=== PATIENT | female | born 1965 | race Caucasian/White ===

== ENCOUNTER 2019-01-07 11:00 | Outpatient (REF) | payer BC, SELFPAY ==
--- NOTE | 2019-01-07 10:30 | PAPFT_PTH ---
PATIENT: Nicole Moffett LOC: [facility] U#:[id number] AGE/SX: 53/F ROOM: RE01/07/[address]: Phyllis Collazo MD, DC : 1965 BED: DIS: 01/07/2019 SPEC #: [id number] RECD: 01/07/19 13:00 STATUS: AVI RECorrie #: [id number] SEAN: 01/07/19 10:[address]: Phyllis Collazo DEPT: [facility] Cytology RECD BY: Jeni Gandhi Tissues: 1 - CX/ENDOCX FOR PAP SMEARS Procedures: PAP THIN PREP/UVM Screening HPV DNA PROBE Comments: [id number]
== END 2019-01-07 11:20 ==
LOC: LBN 11:00
PROVIDERS: PCP Family Medicine; Visit Provider Family Medicine
DX: Z12.4 Encounter for screening for malignant neoplasm of cervix (principal); Z11.51 Encounter for screening for human papillomavirus (HPV)
CPT/HCPCS: 88142; 87624

== ENCOUNTER 2019-01-22 12:30 | Outpatient (REF) | payer BC, SELFPAY ==
--- NOTE | 2019-01-22 10:40 | ENDOMET_PTH ---
PATIENT: Nicole Moffett LOC: [facility] U#:[id number] AGE/SX: 53/F ROOM: RE01/22/[address]: Yakelin Montero MD : 1965 BED: DIS: 01/22/2019 SPEC #: [id number] RECD: 01/22/19 12:39 STATUS: AVI REQ #: [id number] SEAN: 01/22/19 10:[address]: Yakelin Montero DEPT: Surgical Specimen RECD BY: Jeni Gandhi ENTERED: 01/22/19 12:40 SP TYPE: Endomet OTHR DR: Phyllis Collazo MD, DC Tissues: 1 - ENDOMETRIUM BX/CURRETTE Procedures: GROSS AND MICRO LEVEL 4 Comments: [id number]
== END 2019-01-22 12:50 ==
LOC: LBN 12:30
PROVIDERS: PCP Family Medicine; Visit Provider Obstetrics & Gynecology
DX: N85.00 Endometrial hyperplasia, unspecified (principal); N85.8 Other specified noninflammatory disorders of uterus
CPT/HCPCS: 88305

== ENCOUNTER 2019-02-01 00:44 | Outpatient (CLI) | payer BC, SELFPAY ==
--- NOTE | 2019-02-01 11:01 | DI.MAMMO_ITS ---
SYMPTOM/DIAGNOSIS: SCREENING Z12.31 MAMMOGRAM: 02/01 Mammograms were interpreted according to the usual protocol including computer analysis with CAD system, tomosynthesis and C view imaging. The breasts are heterogeneously dense. No dominant mass or clumped microcalcification is identified. The current examination is compared with previous examination of December 2016 and there has been no gross interval change in appearance in comparison with the previous study. CONCLUSION: No specific evidence of malignancy at this time. Routine screening examinations are suggested at yearly intervals in this age group in this age group according to the ACS/ACR guidelines. Category 1, breast density category c. MQSA ASSESSMENT OF FINDINGS: Negative. Category 1. Patient will receive a letter notifying them of these results. Bi-RADS category C. The breasts are heterogeneously dense, which may obscure small masses.
== END 2019-02-01 01:04 ==
PROVIDERS: PCP Family Medicine; Visit Provider Family Medicine
DX: Z12.31 Encounter for screening mammogram for malignant neoplasm of breast (principal)
CPT/HCPCS: 77063; 77067

== ENCOUNTER 2019-02-01 01:35 | Outpatient (CLI) | payer BC, SELFPAY ==
[2019-02-01] MEDS: Inhaler, Assist Device 1 EACH MC (13:53)
[2019-02-01] MEDS: Albuterol HFA 18 GM 200 PUFF INH IH (13:53)
--- NOTE | 2019-02-03 11:34 | PFT_ITS ---
Date: February 01, 2019 Requesting Provider: Dr. Phyllis Collazo Spirometry: Moderately severe obstructive airways disease with no significant bronchodilator response. Lung volumes: No evidence of restriction. There is mild hyperinflation and air trapping. Diffusion capacity: Mildly reduced, even when corrected to alveolar volume. Airways resistance: Normal. IMPRESSION: Moderately severe obstructive airways disease with no significant bronchodilator response. This is associated with mild hyperinflation and air trapping and mild diffusion defect. When this study was compared to previous ones from 06/01/2006, 01/14/2007, 01/12/2008, 06/20/2009, 08/03/2010, 05/04/2012, and 09/09/2014, the patient had an initial drop in FVC from 2005 to 2011, and has remained stable since; FEV-1 had a minimal drop from 2005 to 2014, and again has remained relatively stable since then. Clinical correlation recommended.
== END 2019-02-01 01:55 ==
PROVIDERS: PCP Family Medicine; Visit Provider Family Medicine
DX: R06.09 Other forms of dyspnea (principal); E88.01 Alpha-1-antitrypsin deficiency
CPT/HCPCS: 94060; 94150; 94726; 94729

== ENCOUNTER 2020-08-17 03:49 | Outpatient (CLI) | payer BC, SELFPAY ==
--- NOTE | 2020-08-23 08:14 | W.PFT ---
Date of service: 08/17/20 Time of Service: 02:36 Pulmonary Function Test Result Interpretation Spirometry: Severe obstructive airways disease. No bronchodilator testing was carried out Lung Volumes: No evidence of restriction, mild to moderate hyperinflation and air trapping Diffusion Capacity: Severely reduced, this is moderately reduced when corrected to alveolar volume Airway Pressure: Normal Impression Severe obstructive airways disease, no bronchodilator testing was carried out, this is associated with mild to moderate hyperinflation and air trapping and severe diffusion defect when the study was compared to previous ones from 06/01/2006, 01/14/2007, 01/12/2008, 06/20/2009, 08/03/2010, 05/04/2012, 09/09/2014, 02/01/2019, 08/17/2020. There has been a gradual and fairly substantial decline in FVC and FEV1, FVC had been initially relatively stable until 2008 and from thereon there is a constant and progressive decline, overall there is a 660 cc decline from 2005, and since the time of progressive decline in 2010, there is a 550 cc decline. FEV1 had a similar pattern, from 2005 there is a 410 cc decline, and since 2010 when the progressive decline started, there is a 370 cc decline Clinical Correlation therefore is recommended.
== END 2020-08-17 03:50 | disposition home or self-care (01) ==
LOC: RT 03:49
PROVIDERS: PCP Family Medicine; Visit Provider Family Medicine
DX: J45.909 Unspecified asthma, uncomplicated (principal); E88.01 Alpha-1-antitrypsin deficiency
CPT/HCPCS: 94726; 94729; 94010

== ENCOUNTER 2021-09-12 15:39 | Outpatient (REF) | payer BC, SELFPAY ==
[2021-09-12 16:41] LABS: Abs Immature Grans 0.01 10^3/uL (0.0-0.06); Absolute Basophil Count 0.03 10^3/uL (0.0-0.2); Absolute Eosinophil Count 0.11 10^3/uL (0.0-0.7); Absolute Lymphocyte Count 1.34 10^3/uL (1.2-3.4); Absolute Monocyte Count 0.37 10^3/uL (0.1-0.8); Absolute Neutrophil Count 4.66 10^3/uL (1.2-6.7); Basophils % 0.5; Eosinophils % 1.7; HCT 43.9 % (36.0-46.0); HGB 14.6 g/dL (11.2-15.7); Immature Grans % 0.2; Lymphocytes % 20.6; MCH 29.9 pg (27.0-33.0); MCHC 33.3 % (32.0-36.0); MCV 89.8 fL (80-95); Monocytes % 5.7; Neutrophils % 71.3; Nucleated RBC 0 %; Platelet Count 261 10^3/uL (130-400); RBC 4.89 10^6/uL (3.93-5.22); RDW 12.3 % (11.7-14.6); RDW-SD 40.1 fL; WBC 6.52 10^3/uL (4.4-10.8)
[2021-09-12 17:12] LABS: ALT 36 U/L (14-59); AST 22 U/L (15-37); Albumin 4.4 g/dL (3.4-5.0); Alkaline Phosphatase 83 U/L (46-116); Bilirubin, Direct 0.2 mg/dL (0.0-0.2); Bilirubin, Total 0.7 mg/dL (0.2-1.0); TSH (W/Ref FT4) 1.11 uIU/mL (0.36-3.74); Total Protein 7.4 g/dL (6.4-8.2)
[2021-09-14 10:20] LABS: Alpha 1 Antitrypsin,Serum <58 mg/dL (90-200)
[2021-09-21 15:40] LABS: Misc Referral (MAYO) See Comments
== END 2021-09-12 15:40 | disposition home or self-care (01) ==
LOC: LBN 15:39
PROVIDERS: PCP Family Medicine; Visit Provider Student in an Organized Health Care Education/Training Program
DX: E88.01 Alpha-1-antitrypsin deficiency (principal)
CPT/HCPCS: 80076; 82103; 84443; 85025

== ENCOUNTER 2021-11-07 02:21 | Outpatient (CLI) | payer BC, SELFPAY ==
[2021-11-09 09:47] LABS: IgA 142 mg/dL (85-499)
[2021-11-15 10:55] LABS: Anti-IgA <99 U/mL (<99)
== END 2021-11-07 02:22 | disposition home or self-care (01) ==
LOC: LBO 02:21
PROVIDERS: PCP Family Medicine; Visit Provider Student in an Organized Health Care Education/Training Program
DX: E88.01 Alpha-1-antitrypsin deficiency (principal)
CPT/HCPCS: 36415; 82784; 83520

== ENCOUNTER → 2021-12-12 01:31 | Outpatient (CLI) | payer BC, SELFPAY ==
--- NOTE | 2021-12-12 08:00 | DI.MAMMO_ITS ---
Exam(s) MAMMO SCREENING EXAM: MAMMO SCREENING CLINICAL HISTORY: screening, Z12.39 TECHNIQUE: Mammograms were interpreted according to the usual protocol including computer analysis w [employer] CAD system, tomosynthesis and C-view imaging. COMPARISON: 2017 and 2018 FINDINGS: The breasts are composed of scattered fibroglandular densities, Breast Density category B. No suspicious masses or suspicious microcalcifications are seen. No skin thickening or abnormal axillary lymph nodes are seen. There has been no significant change from prior exams. IMPRESSION: BI-RADS Category 1, Negative mammogram Yearly screening mammography is recommended. Breast Density - Category B, scattered fibroglandular densities. A negative radiographic report should not delay biopsy if a dominant or clinically suspicious mass is present. Up to ten percent of cancers are not identified on mammography. A negative report may reinforce clinical impression. Adenosis and dense breasts may obscure an underlying neoplasm. False positive reports average 6 to 10%. Patient will receive a letter notifying them of these results.
== END ==
PROVIDERS: PCP Family Medicine; Visit Provider Family Medicine
DX: Z12.31 Encounter for screening mammogram for malignant neoplasm of breast (principal)
CPT/HCPCS: 77063; 77067

== ENCOUNTER 2022-01-21 03:34 | Outpatient (CLI) | payer BC, SELFPAY ==
[2022-01-22 11:10] LABS: HBs Antibody, Quant >1000.0 mIU/mL (See Note); Hep B Surface Ab Positive (See Note); Hepatitis B Core Antibody Negative (Negative); Hepatitis B Surface Antigen Negative (Negative)
== END 2022-01-21 03:35 | disposition home or self-care (01) ==
LOC: LOS 03:34
PROVIDERS: PCP Family Medicine; Visit Provider Student in an Organized Health Care Education/Training Program
DX: E88.01 Alpha-1-antitrypsin deficiency (principal)
CPT/HCPCS: 36415; 80061; 86704; 86706; 87340

== ENCOUNTER 2022-06-20 12:58 | Outpatient (REF) | payer BC, SELFPAY ==
--- NOTE | 2022-06-20 11:30 | PAPFT_PTH ---
PATIENT: Nicole Moffett LOC: [facility]#:[id number] AGE/SX: 57/F ROOM: RE06/20/[address]: Phyllis Collazo MD, DC : 1965 BED: DIS: 06/20/2022 SPEC #: [id number] RECD: 06/21/22 15:18 STATUS: AVI REQ #: [id number] SEAN: 06/20/22 11:[address]: Phyllis Collazo DEPT: [facility] Cytology RECD BY: Tara Saunders Tissues: 1 - CX/ENDOCX FOR PAP SMEARS Procedures: PAP THIN PREP/UVM Screening HPV DNA PROBE Comments: [id number]
== END 2022-06-20 12:59 | disposition home or self-care (01) ==
LOC: LBN 12:58
PROVIDERS: PCP Family Medicine; Visit Provider Family Medicine
DX: Z12.4 Encounter for screening for malignant neoplasm of cervix (principal); Z11.51 Encounter for screening for human papillomavirus (HPV)
CPT/HCPCS: 88142; 87624

== ENCOUNTER 2022-08-19 03:03 | Outpatient (CLI) | payer BC, SELFPAY ==
--- NOTE | 2022-08-19 15:28 | W.PFT ---
Date of service: 08/19/22 Time of Service: 13:04 Pulmonary Function Test Result Requesting Provider Felipe Indications: AAT deficiency, COPD Interpretation Spirometry: There is severe airflow limitation. There FVC is reduced due to severe obstruction. Lung Volumes: There is air trapping and hyperinflation. Diffusion Capacity: There is a reduced diffusion. Airway Pressure: Normal airways resistance. Impression Severe airflow obstruction with air trapping and a reduced diffusion. Note: When compared to clinic spirometry of 04/02/22, the FEV1 and FVC are significantly improved. When compared to 08/17/20, there is decline in FVC and FEV1. Clinical Correlation therefore is recommended.
== END 2022-08-19 03:04 | disposition home or self-care (01) ==
LOC: RT 03:03
PROVIDERS: PCP Family Medicine; Visit Provider Student in an Organized Health Care Education/Training Program
DX: E88.01 Alpha-1-antitrypsin deficiency (principal)
CPT/HCPCS: 94726; 94729; 94010

== ENCOUNTER → 2023-12-11 00:05 | Outpatient (CLI) | payer BC, SELFPAY ==
--- NOTE | 2023-12-11 07:00 | DI.DEXA_ITS ---
Exam(s) XR DEXA BONE DENSITY W/WO LALIT EXAM: XR DEXA BONE DENSITY W/WO LALIT CLINICAL HISTORY: menopause, postmenopausal status, Z78.0 TECHNIQUE: COMPARISON: No exams were available for comparison FINDINGS: Lateral Spine Image: Unremarkable. No compression deformities identified. Left hip: Total T-Score: -0.2 Total Z-Score: 0.6 T- and Z-scores: Within normal limits. Lumbar Spine: Total T-Score: -0.6 Total Z-Score: 0.6 T- and Z-scores: Within normal limits. IMPRESSION: No evidence of osteoporosis.
--- NOTE | 2023-12-11 07:00 | DI.MAMMO_ITS ---
Exam(s) MAMMO SCREENING EXAM: MAMMO SCREENING CLINICAL HISTORY: screening, Z12.39 TECHNIQUE: Bilateral full field digital CC and MLO mammographic images were obtained with 3D tomosyn thesis and utilizing computer aided detection (CAD). COMPARISON: Available for comparison. FINDINGS: Masses/Architectural Distortion: None seen. Microcalcifications: No suspicious pleomorphic-type are seen. Skin Thickening/Nipple Retraction: None. IMPRESSION: 1. No significant interval change with no specific features of malignancy noted. 2. Unless there is more urgent need, screening mammography is recommended, as per [employer] guidelines. BI-RADS Category 1 - Negative Breast Density - Category B - Scattered areas of fibroglandular density Breast density category C or D implies that the patient has dense breast tissue. Dense breast tissue is very common and is not abnormal but dense breast tissue can make it harder to find cancer on a ma mmogram. Also, dense breast tissue may increase their breast cancer risk. This information about the result of the mammogram report was provided to the patient to raise their awareness. Use this report when you speak with the patient about their risks for breast cancer, which includes their family hist ory. At that time, you may recommend for more screening tests (Ultrasound or MRI) as they might be us eful based on their risk. A negative radiographic report should not delay biopsy if a dominant or clinically suspicious mass is present. Up to ten percent of cancers are not identified on mammography. A negative report may reinforce clinical impression. Adenosis and dense breasts may obscure an underlying neoplasm. False positive reports average 6 to 10%. Patient will receive a letter notifying them of these results.
== END ==
PROVIDERS: PCP Family Medicine; Visit Provider Family Medicine
DX: Z78.0 Asymptomatic menopausal state (principal); Z12.31 Encounter for screening mammogram for malignant neoplasm of breast; Z13.820 Encounter for screening for osteoporosis
CPT/HCPCS: 77063; 77067; 77080

== ENCOUNTER 2023-12-11 01:07 | Outpatient (CLI) | payer BC, SELFPAY ==
[2023-12-11 08:12] LABS: HCT 45.6 % (36.0-46.0); HGB 15.1 g/dL (11.2-15.7); MCHC 33.1 % (32.0-36.0); MCV 94 fL (80-95); MPV 10.1 fL (8.0-11.0); Platelet Count 214 10^3/uL (130-400); RBC 4.87 10^6/uL (3.93-5.22); RDW 11.9 % (11.7-14.6); RDW-SD 41.1 fL; WBC 5.04 10^3/uL (4.4-10.8)
[2023-12-11 08:50] LABS: ALT 34 U/L (14-59); AST 19 U/L (15-37); Albumin 4.1 g/dL (3.4-5.0); Alkaline Phosphatase 75 U/L (46-116); Anion Gap 7.3 mmol/L (3-11); BUN 20 mg/dL (7-18); Bilirubin, Total 0.78 mg/dL (0.2-1.0); CO2 30.7 mmol/L (21.0-32.0); CREATININE 0.9 mg/dL (0.55-1.02); Calcium 9.3 mg/dL (8.5-10.1); Chloride 102 mmol/L (98-107); Estimated GFR 74.57 (mL/min/1.73m2); Glucose 97 mg/dL (74-106); Potassium 4.2 mmol/L (3.5-5.1); Sodium 140 mmol/L (136-145); Total Protein 7.4 g/dL (6.4-8.2)
[2023-12-11 08:58] LABS: Calculated LDL 130 mg/dL (<100); Cholesterol 235 mg/dL (<200); HDL Cholesterol 97 mg/dL (40-60); TSH (W/Ref FT4) 2.54 uIU/mL (0.36-3.74); Triglyceride 44 mg/dL (<150)
[2023-12-11 09:20] LABS: Hemoglobin A1C 5.4 % (<5.7)
== END 2023-12-11 01:08 | disposition home or self-care (01) ==
PROVIDERS: Student in an Organized Health Care Education/Training Program; PCP Family Medicine; Visit Provider Family Medicine
DX: E03.9 Hypothyroidism, unspecified (principal); Z00.00 Encounter for general adult medical examination without abnormal findings; E11.9 Type 2 diabetes mellitus without complications; I10 Essential (primary) hypertension; E88.01 Alpha-1-antitrypsin deficiency
CPT/HCPCS: 36415; 80053; 80061; 85027; 83036; 84443

== ENCOUNTER 2023-12-11 01:45 | Outpatient (CLI) | payer BC, SELFPAY ==
[2023-12-11] MEDS: Inhaler, Assist Device 1 EACH MC (11:16)
[2023-12-11] MEDS: Levalbuterol HFA 15 GM INH 4 PUFF IH (11:16)
--- NOTE | 2023-12-29 14:13 | W.PFT ---
Date of service: 12/11/23 Time of Service: 10:01 Pulmonary Function Test Result Requesting Provider Phyllis Wang Indications: Bronchiectasis Interpretation Spirometry: Severe decrease in FEV1/FVC and FEV1. Significant reversibilitty after albuterol. Lung Volumes: Normal lung volumes Diffusion Capacity: Moderate decrease in diffusion Impression Severe obstructive ventilatory defect w/ significant reversibility after albuterol. Normal lung volumes and moderate decrease in diffusion. Flow volume curve suggests obstruction. Clinical Correlation therefore is recommended.
== END 2023-12-11 01:46 | disposition home or self-care (01) ==
LOC: RT 01:45
PROVIDERS: PCP Family Medicine; Visit Provider Student in an Organized Health Care Education/Training Program
DX: J47.9 Bronchiectasis, uncomplicated (principal)
CPT/HCPCS: 00123; 94060; 94726; 94729

== ENCOUNTER 2024-12-21 07:24 | Outpatient (CLI) | payer BC, SELFPAY ==
[2024-12-21] MEDS: Inhaler, Assist Device 1 EACH MC (14:18)
[2024-12-21] MEDS: Levalbuterol HFA 15 GM INH 4 PUFF IH (14:18)
--- NOTE | 2024-12-27 12:18 | W.PFT ---
Date of service: 12/21/24 Time of Service: 13:18 Pulmonary Function Test Result Indications: COPD Interpretation Spirometry: There is severe airflow limitation. No significant bronchodilator response. Lung Volumes: There is hyperinflation and air trapping Diffusion Capacity: Reduced diffusion Airway Pressure: Normal airways resistance Impression Severe airflow obstruction with air trapping and a reduced diffusion. Note: When compared to 12/11/23, FEV1 has improved. Clinical Correlation therefore is recommended.
== END 2024-12-21 07:25 | disposition home or self-care (01) ==
LOC: RT 07:25
PROVIDERS: PCP Family Medicine; Visit Provider Student in an Organized Health Care Education/Training Program
DX: J44.9 Chronic obstructive pulmonary disease, unspecified (principal)
CPT/HCPCS: 94060; 94726; 94729

== ENCOUNTER 2025-04-07 14:37 | Outpatient (CLI) | payer BC, SELFPAY ==
[2025-04-07 16:56] LABS: ALT 25 U/L (14-59); AST 15 U/L (15-37); Albumin 4.2 g/dL (3.4-5.0); Alkaline Phosphatase 69 U/L (46-116); Anion Gap 9.9 mmol/L (3-11); BUN 16 mg/dL (7-18); Bilirubin, Total 0.6 mg/dL (0.2-1.0); CO2 28.1 mmol/L (21.0-32.0); Calcium 9.8 mg/dL (8.5-10.1); Chloride 101 mmol/L (98-107); Estimated GFR 100.19 (mL/min/1.73m2); Glucose 96 mg/dL (74-106); Potassium 4.0 mmol/L (3.5-5.1); Sodium 139 mmol/L (136-145); Total Protein 7.3 g/dL (6.4-8.2); Vitamin B12 630 pg/mL (193-986)
[2025-04-08 18:38] LABS: Hepatitis C Ab w Rflx HCV PCR Negative (Negative)
== END 2025-04-07 14:38 | disposition home or self-care (01) ==
LOC: LOS 14:37
PROVIDERS: PCP Family Medicine; Visit Provider Family Medicine
DX: E53.8 Deficiency of other specified B group vitamins (principal); Z11.59 Encounter for screening for other viral diseases; I10 Essential (primary) hypertension
CPT/HCPCS: 36415; 80053; 86803; 82607

== ENCOUNTER 2025-04-07 18:10 | Outpatient (REF) | payer BC, SELFPAY ==
--- NOTE | 2025-04-07 13:45 | PAPFT_PTH ---
PATIENT: Nicole Moffett LOC: [facility] U#:[id number] AGE/SX: 59/F ROOM: RE04/07/[address]: Phyllis Collazo MD, DC : 1965 BED: DIS: 04/07/2025 SPEC #: [id number] RECD: 04/07/25 18:19 STATUS: DARRELLLeida RECorrie #: [id number] SEAN: 04/07/25 13:[address]: Phyllis Collazo DEPT: [facility] Cytology RECD BY: Jeni Gandhi Tissues: 1 - CX/ENDOCX FOR PAP SMEARS Procedures: PAP THIN PREP/UVM Screening HPV DNA PROBE Comments: [id number] (HPV 16 & 18/45)
== END 2025-04-07 18:11 | disposition home or self-care (01) ==
LOC: LBN 18:10
PROVIDERS: PCP Family Medicine; Visit Provider Family Medicine
DX: Z12.4 Encounter for screening for malignant neoplasm of cervix (principal)
CPT/HCPCS: 88142; 87624

== ENCOUNTER 2025-04-11 02:49 | Outpatient (CLI) | payer BC, SELFPAY ==
--- NOTE | 2025-04-11 15:47 | DI.RAD_ITS ---
Exam(s) XR SHOULDER RT COMPLETE 2+V EXAM: XR SHOULDER RT COMPLETE 2+V CLINICAL HISTORY: shoulder pain, SHOULDER BURSITIS, M75.50. TECHNIQUE: 2D digital imaging was performed. Five views. COMPARISON: CR RIGHT SHOULDER COMPLETE from 09/03/2013 FINDINGS: BONES: No acute fracture is present. No bony destructive lesion is seen. JOINTS: No dislocation present. SOFT TISSUE: Normal. IMPRESSION: Unremarkable radiographs of the right shoulder. DATA REPOSITORY: RADIATION DOSE DELIVERED:
== END 2025-04-11 03:09 ==
PROVIDERS: PCP Family Medicine; Visit Provider Family Medicine
DX: M75.51 Bursitis of right shoulder (principal)
CPT/HCPCS: 73030

== ENCOUNTER → 2025-06-06 15:38 | Outpatient (CLI) | payer BC, SELFPAY ==
--- NOTE | 2025-06-06 17:57 | DI.RAD_ITS ---
Exam(s) XR CHEST 2V PA LATERAL EXAM: XR CHEST 2V PA LATERAL CLINICAL HISTORY: cough,fever R05.9, R50.9 TECHNIQUE: 2D digital imaging was performed. Two views. COMPARISON: CT CT CHEST HIGH RESOLUTION from 10/04/2021 FINDINGS: HEART: Normal size. Aorta: Not dilated. PULMONARY VASCULATURE: Normal. MEDIASTINUM: Unremarkable. LUNGS: Emphysematous changes. Bilateral lower lobe scarring. No infiltrate or pulmonary edema. PLEURAL SPACE: No pleural effusion or pneumothorax. BONE:Unremarkable for age. SOFT TISSUES: Unremarkable. IMPRESSION: Emphysematous changes. No acute abnormality. DATA REPOSITORY: RADIATION DOSE DELIVERED:
--- NOTE | 2025-06-06 18:36 | DI.VRAD_ITS ---
PROCEDURE INFORMATION: Exam: XR Chest Exam date and time: 06/06/2025 5:53 PM Age: 60 years old Clinical indication: Cough and fever; Cough/fever TECHNIQUE: Imaging protocol: Radiologic exam of the chest. Views: 2 views. Total images: 2 COMPARISON: CT CHEST HIGH RESOLUTION 10/04/2021 3:31 PM FINDINGS: Lungs: Atelectatic changes noted within both lung bases. Bilateral hyperinflation is present. Pleural spaces: No pleural effusion. No pneumothorax. Heart/Mediastinum: No cardiomegaly. Bones/joints: Rightward curvature of the thoracic spine with mild degenerative changes. IMPRESSION: 1. Atelectatic changes noted within both lung bases. 2. Bilateral hyperinflation is present. Dictated and Authenticated by: Gianfranco Cheng MD. Orderin Trevon Conrad MD
== END ==
PROVIDERS: PCP Family Medicine; Visit Provider Physician Assistant Surgical
DX: R05.9 Cough, unspecified (principal); R50.9 Fever, unspecified; R91.8 Other nonspecific abnormal finding of lung field
CPT/HCPCS: 71046